=== PATIENT | male | born 1925 | race Caucasian/White ===

== ENCOUNTER 2017-01-08 13:45 | Emergency (ER) | payer OTHER ==
[~2017-01-08] VITALS: Ht 172.7 cm; Wt 65.8 kg
--- NOTE | 2017-01-08 13:45 | NUR ---
Patient was BIBA at this time.
--- NOTE | 2017-01-08 13:50 | NUR ---
Patient to bed 08 via gurney per EMS.
[2017-01-08 14:02] VITALS: BP 188/100
[2017-01-08 14:06] LABS: BASOPHILS % (AUTO) 0.7 % (0.0-2.0); EOSINOPHILS # (AUTO) 0.1 K/uL (0-0.4); EOSINOPHILS % (AUTO) 1.5 % (0.0-4.0); HEMATOCRIT 41.7 % (36-52); HEMOGLOBIN 14.1 g/dL (12.0-18.0); LYMPHOCYTES # (AUTO) 0.7 K/uL (2.0-11.5); LYMPHOCYTES % (AUTO) 9.6 % (20.5-51.1); MEAN CORPUSCULAR HEMOGLOBIN 29 pg (27-31); MEAN CORPUSCULAR HGB CONC 34 g/dL (33-37); MEAN CORPUSCULAR VOLUME 86 fL (80-94); MONOCYTES # (AUTO) 0.3 K/uL (0.8-1.0); MONOCYTES % (AUTO) 3.7 % (1.7-9.3); NEUTROPHILS % (AUTO) 84.5 % (42.2-75.2); PLATELET COUNT (AUTO) 173 K/uL (140-450); RED BLOOD CELL COUNT(AUTO) 4.87 MIL/uL (4.20-6.10); RED CELL DISTRIBUTION WIDTH 14.7 % (11.6-13.7); WHITE BLOOD COUNT (AUTO) 7.1 K/uL (4.8-10.8)
--- NOTE | 2017-01-08 14:15 | NUR ---
89/M biba from an urgent care for evaluation of left hand/wrist pain. Patient states he drove himself to urgent care to get his left hand evaluated. Pt c/o pain to left hand/wrist x 3 days and worsening today. Pt also c/o numbness to fingertips, capillary refill less than 3 seconds, +2 radial pulses bilaterally. 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 Pt states urgent care called 911 after doing a "heart test." Pt denies chest pain. Denies shortness of breath. O2 sat 95% on room air. RR even and unlabored. Pt placed on diagnostic cardiac sonographer, pulse oximetry and blood pressure monitoring. VSS. Cardiac rhythm normal sinus rhythm with PVC's. Patient is AOX4, clear speech. Pt c/o 8/10 pain to left hand and requesting pain medication. Pt states EMS gave him a baby aspirin and a "pill to put under my tongue." Pt states he was at the urgent care in [place]. Pt is calm and relaxed. Placed into a gown. VSS.
--- NOTE | 2017-01-08 14:18 | NUR ---
X-Ray at bedside.
[2017-01-08 14:20] LABS: ANION GAP 13.5 (8-16); CALCIUM 8.8 mg/dL (8.5-10.1); CARBON DIOXIDE 24.7 mmol/L (21-32); CHLORIDE 105 mmol/L (98-107); CREATININE 1.6 mg/dL (0.6-1.3); GLUCOSE 109 mg/dL (74-106); POTASSIUM 4.2 mmol/L (3.5-5.1); SODIUM SERUM 139 mmol/L (136-145); UREA NITROGEN, BLOOD 23 mg/dL (7-18)
[2017-01-08 14:23] LABS: INR 1.2 (0.8-1.2); PARTIAL THROMBOPLASTIN TIME 29.1 secs (22-35.6)
[2017-01-08 14:26] LABS: ALANINE AMINOTRANSFERASE 12 U/L (12-78); ALBUMIN 3.4 g/dL (3.4-5.0); ALKALINE PHOSPHATASE 115 U/L (46-116); ASPARTATE AMINOTRANSFERASE 13 U/L (15-37); TOTAL PROTEIN, SERUM 7.2 g/dL (6.4-8.2)
--- NOTE | 2017-01-08 14:36 | NUR ---
Patient appears to be resting comfortably in bed. Vital Signs within normal limits. Respirations even and unlabored.
--- NOTE | 2017-01-08 15:15 | NUR ---
Pt provide with phone to call his daugher.
--- NOTE | 2017-01-08 15:35 | NUR ---
Patient provided with warm blanket and placed in position of comfort.
--- NOTE | 2017-01-08 15:45 | NUR ---
Dr. Landon evaluating patient at bedside.
[2017-01-08] MEDS ORDERED: KETOROLAC 30 MG/ML VIAL IVP ONE (15:55)
--- NOTE | 2017-01-08 16:16 | NUR ---
IV removed, catheter intact and site benign. Applied folded 4x4 gauze and tape to stop bleeding.
[2017-01-08 17:01] VITALS: BP 177/84
--- NOTE | 2017-01-08 17:02 | NUR ---
Patient discharged with v/s stable. Written and verbal after care instructions given and explained. Patient alert, oriented and verbalized understanding of instructions. Ambulatory with steady gait. All questions addressed prior to discharge. ID band removed. Patient advised to follow up with PMD. Rx of MOTRIN AND NORCO given. Patient educated on indication of medication including possible reaction and side effects. Opportunity to ask questions provided and answered.
== END 2017-01-08 17:02 | disposition home or self-care (01) ==
LOC: MED 13:45
DX: M79.602 Pain in left arm (principal); I10 Essential (primary) hypertension; Z85.118 Personal history of other malignant neoplasm of bronchus and lung; Z90.49 Acquired absence of other specified parts of digestive tract; Z98.890 Other specified postprocedural states
CPT/HCPCS: 36415; 71010; 80053; 83880; 84484; 85025; 85610; 85730; 93005; 96374; 99285; J1885; Q0092